=== PATIENT | male | born 1985 | race African-American/Black ===

== ENCOUNTER 2024-08-03 12:36 | Emergency (ER) | payer OTHER ==
[~2024-08-03] VITALS: Ht 175.3 cm; Wt 124.0 kg
[~2024-08-03 12:36] MED LIST: HYDR25TA MT; LIP40 PO; METO25TA6 PO; NIFE-32 PO
[2024-08-03 12:42] VITALS: TEMP 36.9; O2SAT 99
[2024-08-03] MEDS: KETOROLAC 15MG/ML VIAL IV ONE (13:15)
[2024-08-03] MEDS: LIDOCAINE 5% PATCH TOP SCH (13:15)
[2024-08-03 13:59] LABS: BASOPHILS % 0.2 % (0.0-2.0); CHLORIDE 104 mEq/L (98-107); EOSINOPHILS % 11.8 % (0.0-5.0); HEMATOCRIT. 41.3 % (42.0-52.0); HEMOGLOBIN. 13.8 g/dL (14.0-18.0); LYMPHOCYTES % 18.2 % (20.0-50.0); MEAN CORPUSCULAR HEMOGLOBIN 28.8 pg (28.0-32.0); MEAN CORPUSCULAR HGB CONC 33.5 g/dL (31.0-37.0); MEAN PLATELET VOLUME 8.8 fl (7.4-10.4); NEUTROPHILS % 60.8 % (40.0-76.0); PLATELET 215 x1000/uL (130-400); RED CELL DISTRIBUTION WIDTH 13.8 % (11.6-14.6); WHITE BLOOD COUNT 7.7 x1000/uL (4.5-11.0)
[2024-08-03 14:00] LABS: POTASSIUM 4.4 mEq/L (3.5-5.1); SODIUM 139 mEq/L (136-145)
[2024-08-03 14:01] LABS: CALCIUM 9.7 mg/dL (8.7-10.4); CARBON DIOXIDE 26 mEq/L (21-32)
[2024-08-03 14:05] LABS: CREATININE 2.2 mg/dL (0.6-1.3)
[2024-08-03 14:06] LABS: GLUCOSE 95 mg/dL (70-105); UREA NITROGEN BLOOD 19 mg/dL (9-23)
[2024-08-03 14:08] LABS: ALANINE AMINOTRANSFERASE 8 IU/L (10-49); ALBUMIN 4.8 g/dL (3.2-4.8); ASPARTATE AMINOTRANSFERASE 27 IU/L (<34); BILIRUBIN TOTAL 0.8 mg/dL (0.1-1.0); PROTEIN TOTAL 8.4 g/dL (6.0-8.3)
[2024-08-03 14:09] LABS: PARTIAL THROMBOPLASTIN TIME 22.7 sec (23.4-31.0); PROTHROMBIN TIME 10.5 sec (9.6-11.0)
[2024-08-03] MEDS: MORPHINE SULFATE 4 MG/ML INJ (FOR IV/IM USE) IV ONE (14:15)
[2024-08-03] MEDS: ACETAMINOPHEN 325MG TABLET PO ONE (14:31)
[2024-08-03] MEDS: SODIUM CHLORIDE 0.9% 1,000 ML IV ONE (14:31)
[2024-08-03] MEDS: IOHEXOL-350 100 ML BOTTLE ONE (15:00)
[2024-08-03 15:41] LABS: TROPONIN I HIGH SENSITIVITY 33 ng/L (3.0-53)
[2024-08-03] MEDS: HYDROCHLOROTHIAZIDE 25MG TABLET PO ONE (16:42)
[2024-08-03] MEDS: METOPROLOL SUCCINATE 50MG ER TABLET PO ONE (16:42)
[2024-08-03 18:11] LABS: TROPONIN I HIGH SENSITIVITY 27 ng/L (3.0-53)
[2024-08-03] MEDS ORDERED: ONDANSETRON HCL 4MG/2ML INJ IV ONE (18:15)
[2024-08-03] MEDS: MORPHINE SULFATE 2 MG/ML INJ (NOT FOR IM USE) IV ONE (18:17)
[2024-08-03] MEDS: HYDRALAZINE 20MG/ML VIAL IV ONE (18:17)
[2024-08-03 18:35] VITALS: BP 181/105; PULSE 89; RESP 18; O2SAT 100
== END 2024-08-03 18:41 | disposition short-term general hospital (02) ==
LOC: ER 12:36 → CANBEDREQ 15:17 → ER 18:41
DX: S22.31XA Fracture of one rib, right side, initial encounter for closed fracture (principal); R07.89 Other chest pain; J93.83 Other pneumothorax; I10 Essential (primary) hypertension; R55 Syncope and collapse; Z79.899 Other long term (current) drug therapy; V43.52XA Car driver injured in collision with other type car in traffic accident, initial encounter; Y93.89 Activity, other specified; Y92.410 Unspecified street and highway as the place of occurrence of the external cause; Y99.8 Other external cause status
CPT/HCPCS: 80053; 83880; 85025; 85610; 85730; 86850; 86900; 86901; 84484; 36415; 74174; 71045; 72170; 71275; 70450; 72125; 93005; 96361; 96374; 96375; 96376; 99291; Q9967; J0360; J1885; J2405; J2270; J7030; Z7610 ×2